=== PATIENT | male | born 1980 | race Caucasian/White ===

== ENCOUNTER 2016-10-08 18:55 | Emergency (ER) | payer BC, MEDICARE | END 2016-10-08 19:27 | disposition home or self-care (01) | LOC: MADERS 18:55 | DX: M54.5 Low back pain (principal); F41.9 Anxiety disorder, unspecified; F32.9 Major depressive disorder, single episode, unspecified; F17.210 Nicotine dependence, cigarettes, uncomplicated; Z79.899 Other long term (current) drug therapy | CPT/HCPCS: 99283 ==

== ENCOUNTER 2016-10-29 20:58 | Emergency (ER) | payer MEDICARE, MEDICAID ==
[2016-10-29] MEDS ORDERED: Ketorolac Tromethamine 60 MG/2 ML VIAL ONE (21:35)
[2016-10-29] MEDS ORDERED: Dexamethasone 4 MG TAB ONE (21:35)
== END 2016-10-29 21:58 | disposition home or self-care (01) ==
LOC: MADERS 20:58
DX: M54.5 Low back pain (principal); F41.9 Anxiety disorder, unspecified; F32.9 Major depressive disorder, single episode, unspecified; F17.210 Nicotine dependence, cigarettes, uncomplicated; Z79.899 Other long term (current) drug therapy
CPT/HCPCS: 96372; J1885; J8540

== ENCOUNTER 2016-11-20 17:51 | Emergency (ER) | payer MEDICARE, MEDICAID ==
[2016-11-20] MEDS ORDERED: Morphine Sulfate 2 MG/ML SYRINGE ONE (19:07)
[2016-11-20] MEDS ORDERED: Naproxen 500 MG TAB ONE (19:07)
[2016-11-20] MEDS ORDERED: Cephalexin 500 MG CAP ONE (19:07)
[2016-11-20] MEDS ORDERED: Ondansetron ODT 4 MG TAB ONE (19:07)
[2016-11-20] MEDS ORDERED: Sulfameth/Trimethoprim DS 800-160mg TAB ONE (19:07)
[2016-11-20] MEDS ORDERED: Oxymetazoline HCl 0.05% ( 15 ML ) ONE (19:07)
== END 2016-11-20 19:35 | disposition home or self-care (01) ==
LOC: MADERS 17:51
DX: J01.90 Acute sinusitis, unspecified (principal); M54.9 Dorsalgia, unspecified; G89.29 Other chronic pain; F41.9 Anxiety disorder, unspecified; F32.9 Major depressive disorder, single episode, unspecified; F17.210 Nicotine dependence, cigarettes, uncomplicated; Z79.899 Other long term (current) drug therapy
CPT/HCPCS: 96372; J2270; Q0162